=== PATIENT | female | born 1965 | race Caucasian/White ===

== ENCOUNTER 2017-08-20 11:32 | Inpatient (IN) | payer OTHER ==
[~2017-08-20] VITALS: Ht 160 cm; Wt 180.3 kg
--- NOTE | 2017-08-20 12:08 | PHYS DOC ---
Past Medical History Past Medical History: Diabetes-Type II, GERD, High Cholesterol, Hypertension Past Surgical History: Cholecystectomy, Hysterectomy, Other Additional Past Surgical Histo: BILATERAL KNEE SX Alcohol Use: Occasionally Drug Use: None Adult General Chief Complaint Chief Complaint: FLANK PAIN HPI HPI Patient is a 52 year old female who presents with abdominal pain. She states it started last night after she ate dinner she states it started in the right upper quadrant sharp in nature and radiated around her back and into her left upper quadrant as well. She denies any dysuria, fevers chills nausea or vomiting. She states she hasn't ate anything since last night and the pains been getting worse it was initially a 5 out of 10 now to 7 out of 10. She states she had a normal bowel movement this morning. She states she's had a history of cholecystectomy and partial hysterectomy. States she's had a history kidney stones and this does not feel like a kidney stone. Review of Systems Review of Systems Constitutional: Denies fever or chills [] Eyes: Denies change in visual acuity, redness, or eye pain [] HENT: Denies nasal congestion or sore throat [] Respiratory: Denies cough or shortness of breath [] Cardiovascular: No additional information not addressed in HPI [] GI: Positive for abdominal pain, Denies nausea, vomiting, bloody stools or diarrhea [] : Denies dysuria or hematuria [] Musculoskeletal: Denies back pain or joint pain [] Integument: Denies rash or skin lesions [] Neurologic: Denies headache, focal weakness or sensory changes [] Endocrine: Denies polyuria or polydipsia [] Current Medications Current Medications Current Medications Medications (Trade) Dose Ordered Sig/Pratik Start Time Stop Time Status Last Admin Dose Admin Fentanyl Citrate (Fentanyl 2ml Vial) 50 mcg PRN Q15MIN PRN 08/20/17 12:30 08/21/17 12:29 08/20/17 15:22 50 MCG Iohexol (Omnipaque 240 Mg/ml) 50 ml 1X ONCE 08/20/17 14:15 08/20/17 14:16 DC 08/20/17 14:15 50 ML Iohexol (Omnipaque 300 Mg/ml) 75 ml 1X ONCE 08/20/17 14:15 08/20/17 14:16 DC 08/20/17 14:15 75 ML Ondansetron HCl (Zofran) 4 mg 1X ONCE 08/20/17 12:30 08/20/17 12:31 DC 08/20/17 12:39 4 MG Sodium Chloride 1,000 ml @ 1,000 mls/hr 1X ONCE 08/20/17 12:30 08/20/17 13:29 DC 08/20/17 12:39 1,000 MLS/HR Allergies Allergies Allergies Coded Allergies Type Severity Reaction Last Updated Verified sulfamethoxazole Allergy Mild RASH 08/20/17 Yes trimethoprim Allergy Mild RASH 08/20/17 Yes Physical Exam Physical Exam Constitutional: Well developed, well nourished, no acute distress, non-toxic appearance. [] HENT: Normocephalic, atraumatic, bilateral external ears normal, oropharynx moist, no oral exudates, nose normal. [] Eyes: PERRLA, EOMI, conjunctiva normal, no discharge. [] Neck: Normal range of motion, no tenderness, supple, no stridor. [] Cardiovascular:Heart rate regular rhythm, no murmur [] Lungs & Thorax: Bilateral breath sounds clear to auscultation [] Abdomen: Bowel sounds hypoactive, soft, tender palpation in the right upper quadrant, other 3 quadrants nontender to palpation, no masses, no pulsatile masses. [] Skin: Warm, dry, no erythema, no rash. [] Back: No tenderness, no CVA tenderness. [] Extremities: No tenderness, no cyanosis, no clubbing, ROM intact, no edema. [] Neurologic: Alert and oriented X 3, normal motor function, normal sensory function, no focal deficits noted. [] Psychologic: Affect normal, judgement normal, mood normal. [] Current Patient Data Vital Signs Vital Signs Date Time Temp Pulse Resp B/P (MAP) Pulse Ox O2 Delivery O2 Flow Rate FiO2 08/20/17 16:25 78 19 136/63 (87) 96 Nasal Cannula 2.0 08/20/17 12:00 97.8 97.8 Lab Values Laboratory Tests Test 08/20/17 09:15 08/20/17 11:45 08/20/17 12:13 White Blood Count 7.5 x10^3/uL (4.0-11.0) Red Blood Count 4.04 x10^6/uL (3.50-5.40) Hemoglobin 12.2 g/dL (12.0-15.5) Hematocrit 36.1 % (36.0-47.0) Mean Corpuscular Volume 89 fL (79-100) Mean Corpuscular Hemoglobin 30 pg (25-35) Mean Corpuscular Hemoglobin Concent 34 g/dL (31-37) Red Cell Distribution Width 14.0 % (11.5-14.5) Platelet Count 215 x10^3/uL (140-400) Neutrophils (%) (Auto) 67 % (31-73) Lymphocytes (%) (Auto) 23 % (24-48) L Monocytes (%) (Auto) 7 % (0-9) Eosinophils (%) (Auto) 4 % (0-3) H Basophils (%) (Auto) 1 % (0-3) Neutrophils # (Auto) 5.0 x10^3uL (1.8-7.7) Lymphocytes # (Auto) 1.7 x10^3/uL (1.0-4.8) Monocytes # (Auto) 0.5 x10^3/uL (0.0-1.1) Eosinophils # (Auto) 0.3 x10^3/uL (0.0-0.7) Basophils # (Auto) 0.0 x10^3/uL (0.0-0.2) Prothrombin Time 12.7 SEC (11.7-14.0) Prothrombin Time INR 1.0 (0.8-1.1) PTT 25 SEC (24-38) Sodium Level 141 mmol/L (136-145) Potassium Level 4.0 mmol/L (3.5-5.1) Chloride Level 105 mmol/L (98-107) Carbon Dioxide Level 33 mmol/L (21-32) H Anion Gap 3 (6-14) L Blood Urea Nitrogen 13 mg/dL (7-20) Creatinine 0.8 mg/dL (0.6-1.0) Estimated GFR (Cockcroft-Gault) 75.3 Glucose Level 111 mg/dL (70-99) H Calcium Level 9.1 mg/dL (8.5-10.1) Total Bilirubin 0.3 mg/dL (0.2-1.0) Direct Bilirubin < 0.1 mg/dL (0.0-0.2) Aspartate Amino Transferase (AST) 25 U/L (15-37) Alanine Aminotransferase (ALT) 36 U/L (14-59) Alkaline Phosphatase 58 U/L (46-116) Creatine Kinase 99 U/L (26-192) Creatine Kinase MB (Mass) 0.6 ng/mL (0.0-3.6) Creatine Kinase MB Relative Index 0.6 % (0-4) Total Protein 7.1 g/dL (6.4-8.2) Albumin 3.5 g/dL (3.4-5.0) Lipase 201 U/L (73-393) Urine Collection Type Unknown Urine Color Yellow Urine Clarity Clear Urine pH 8.0 Urine Specific [place] 1.020 Urine Protein Negative mg/dL (NEG-TRACE) Urine Glucose (UA) Negative mg/dL (NEG) Urine Ketones (Stick) Negative mg/dL (NEG) Urine Blood Negative (NEG) Urine Nitrite Negative (NEG) Urine Bilirubin Negative (NEG) Urine Urobilinogen Dipstick 0.2 mg/dL (0.2 mg/dL) Urine Leukocyte Esterase Negative (NEG) Urine RBC Occ /HPF (0-2) Urine WBC 1-4 /HPF (0-4) Urine Squamous Epithelial Cells Many /LPF Urine Bacteria Moderate /HPF (0-FEW) Urine Opiates Screen Neg (NEG) Urine Methadone Screen Neg (NEG) Urine Barbiturates Neg (NEG) Urine Phencyclidine Screen Neg (NEG) Urine Amphetamine/Methamphetamine Neg (NEG) Urine Benzodiazepines Screen Neg (NEG) Urine Cocaine Screen Neg (NEG) Urine Cannabinoids Screen Neg (NEG) Urine Ethyl Alcohol Neg (NEG) Troponin I Quantitative < 0.017 ng/mL (0.000-0.055) Laboratory Tests 08/20/17 09:15 Laboratory Tests 08/20/17 09:15 EKG EKG EKG shows sinus rhythm with rate of [address] elevations, T-wave inversions noted in lead 3, right axis deviation with right bundle branch morphology noted, QTC 443 ms, as interpreted by me. Radiology/Procedures Radiology/Procedures [facility] [address] [place] [address] IMAGING REPORT Signed PATIENT: MASOUD CHANG ACCOUNT: [id number] : 1965 LOCATION: ER AGE: 52 SEX: F EXAM STATUS: REG ER ORD. PHYSICIAN: MELIA ACOSTA MD REASON: abd pain PROCEDURE: CT ABD PELV W/ORAL&IV CONTRAST EXAM: Abdomen and pelvis CT with intravenous contrast. HISTORY: Pain. TECHNIQUE: Computed tomographic images of the abdomen and pelvis were obtained following the administration of 75 cc Omnipaque 300 intravenous contrast. Multiplanar reformatting was performed. COMPARISON: None. FINDINGS: Evaluation of the lower thorax demonstrates posterior dependent atelectasis. There is no infiltrate or effusion. There is mild hepatomegaly and suspected minimal hepatic steatosis. The gallbladder is surgically absent. The pancreas, spleen, adrenal glands and kidneys are unremarkable. The appendix is normal in appearance. No abnormally thickened or dilated loop of bowel is seen. There are few distal colonic diverticula. The ovaries are unremarkable. The uterus is surgically absent. No pathologically enlarged lymph node is seen. There is a tiny fat-containing umbilical hernia. No suspicious osseous lesion is seen. IMPRESSION: 1. Few distal colonic diverticula. 2. Mild hepatomegaly and suspected minimal hepatic steatosis. 3. No acute abdominal or pelvic finding. PQRS Compliance Statement: One or more of the following individualized dose reduction techniques were utilized for this examination: 1. Automated exposure control 2. Adjustment of the mA and/or kV according to patient size 3. Use of iterative reconstruction technique DICTATED and SIGNED BY: BALJIT DORSEY MD DATE: 08/20/17 1532 CC: MELIA ACOSTA MD; UNKNOWN PCP NAME ~ Impressions: Right upper quadrant abdominal pain Course & Med Decision Making Course & Med Decision Making Pertinent Labs and Imaging studies reviewed. (See chart for details) CT scan and labs do not show any acute abnormality's. We'll obtain a right upper quadrant ultrasound and admit for pain control. Spoke with Dr. Nichols is agreeable to plan. Patient and her are agreeable and in stable condition at this time. Dragon Disclaimer Dragon Disclaimer This electronic medical record was generated, in whole or in part, using a voice recognition dictation system. MELIA ACOSTA MD Aug 20, 2017 12:08
[2017-08-20] MEDS ORDERED: fentaNYL PF VIAL 100 MCG/2 ML VIAL IV PRN ×2 (12:15→18:45)
[2017-08-20 12:23] LABS: BILIRUBIN,URINE NEGATIVE (NEG); GLUCOSE,URINE NEGATIVE (NEG); NITRITE,URINE NEGATIVE (NEG); PROTEIN,URINE NEGATIVE (NEG-TRACE); UROBILINOGEN,URINE 0.2 mg/dL (0.2 mg/dL)
[2017-08-20] MEDS ORDERED: IV NORMAL SALINE 1000ML BAG 1,000 ML IV ONE (12:30)
[2017-08-20] MEDS ORDERED: ONDANSETRON PF 4 MG/2 ML VIAL. IV ONE (12:30)
[2017-08-20 12:39] LABS: BASO % 1 % (0-3); EOS % 4 % (0-3); HEMATOCRIT 36.1 % (36.0-47.0); HEMOGLOBIN 12.2 g/dL (12.0-15.5); LYMPH # 1.7 x10^3/uL (1.0-4.8); LYMPH % 23 % (24-48); MEAN CORPUSCULAR HEMOGLOBIN 30 pg (25-35); MEAN CORPUSCULAR HGB CONC 34 g/dL (31-37); MEAN CORPUSCULAR VOLUME 89 fL (79-100); MONO % 7 % (0-9); NEUT % 67 % (31-73); PLATELET COUNT 215 x10^3/uL (140-400); RED BLOOD COUNT 4.04 x10^6/uL (3.50-5.40); WHITE BLOOD COUNT 7.5 x10^3/uL (4.0-11.0)
[2017-08-20] MEDS: fentaNYL PF VIAL 100 MCG/2 ML VIAL IV PRN ×3 (12:39→15:22)
[2017-08-20 12:40] LABS: BARBITURATES NEG (NEG); BENZODIAZEPINES NEG (NEG); CANNABINOIDS NEG (NEG); COCAINE NEG (NEG); METHADONE NEG (NEG); OPIATES NEG (NEG); PHENCYCLIDINE NEG (NEG)
--- NOTE | 2017-08-20 12:41 | EKG ---
[facility] [address] [place] [address] Test Date: 2017-08-20 Test Time: 12:24:03 Pat Name: MASOUD CHANG Department: Room: Gender: F Rn Clinical Quality: : 1965 Requested By: MELIA ACOSTA Order Number: [id number] Reading MD: Venkata Serna Measurements Intervals [place] Rate: 76 P: 45 MN: 142 QRS: 106 QRSD: 126 T: 7 QT: 390 QTc: 443 Interpretive Statements SINUS RHYTHM RIGHTWARD AXIS RIGHT BUNDLE BRANCH BLOCK QRS(T) CONTOUR ABNORMALITY CONSIDER ANTEROLATERAL MYOCARDIAL DAMAGE RI6.01 Unconfirmed report No previous ECG available for comparison Electronically Signed On 08-30-2017 12:42:39 CDT by Venkata Serna
[2017-08-20 12:50] LABS: ANION GAP 3 (6-14); BLOOD UREA NITROGEN 13 mg/dL (7-20); CALCIUM 9.1 mg/dL (8.5-10.1); CARBON DIOXIDE 33 mmol/L (21-32); CHLORIDE 105 mmol/L (98-107); CREATININE 0.8 mg/dL (0.6-1.0); GFR 75.3; GLUCOSE 111 mg/dL (70-99); SODIUM 141 mmol/L (136-145)
[2017-08-20 12:50] LABS: BACTERIA,URINE MODERATE /HPF (0-FEW); RBC,URINE OCC /HPF (0-2); SQUAMOUS EPITHELIAL CELL,UR MANY /LPF
[2017-08-20 12:53] LABS: PROTHROMBIN TIME PATIENT 12.7 SEC (11.7-14.0)
[2017-08-20 12:55] LABS: ALBUMIN 3.5 g/dL (3.4-5.0); ALK PHOS 58 U/L (46-116); ALT (SGPT) 36 U/L (14-59); AST (SGOT) 25 U/L (15-37); DIRECT BILIRUBIN < 0.1 mg/dL (0.0-0.2); TOTAL BILIRUBIN 0.3 mg/dL (0.2-1.0); TOTAL PROTEIN 7.1 g/dL (6.4-8.2)
[2017-08-20 13:03] LABS: CKMB MASS 0.6 ng/mL (0.0-3.6)
[2017-08-20] MEDS ORDERED: IOHEXOL 300 MG/ML 75 ML VIAL IV ONE (14:15)
[2017-08-20] MEDS ORDERED: IOHEXOL 240 MG/ML 50ML VIAL. PO ONE (14:15)
--- NOTE | 2017-08-20 15:38 | RAD ---
EXAM: Abdomen and pelvis CT with intravenous contrast. HISTORY: Pain. TECHNIQUE: Computed tomographic images of the abdomen and pelvis were obtained following the administration of 75 cc Omnipaque 300 intravenous contrast. Multiplanar reformatting was performed. COMPARISON: None. FINDINGS: Evaluation of the lower thorax demonstrates posterior dependent atelectasis. There is no infiltrate or effusion. There is mild hepatomegaly and suspected minimal hepatic steatosis. The gallbladder is surgically absent. The pancreas, spleen, adrenal glands and kidneys are unremarkable. The appendix is normal in appearance. No abnormally thickened or dilated loop of bowel is seen. There are few distal colonic diverticula. The ovaries are unremarkable. The uterus is surgically absent. No pathologically enlarged lymph node is seen. There is a tiny fat-containing umbilical hernia. No suspicious osseous lesion is seen. IMPRESSION: 1. Few distal colonic diverticula. 2. Mild hepatomegaly and suspected minimal hepatic steatosis. 3. No acute abdominal or pelvic finding. PQRS Compliance Statement: One or more of the following individualized dose reduction techniques were utilized for this examination: 1. Automated exposure control 2. Adjustment of the mA and/or kV according to patient size 3. Use of iterative reconstruction technique
--- NOTE | 2017-08-20 16:28 | RAD ---
EXAM: Chest, single view. HISTORY: Chest pain. COMPARISON: None. FINDINGS: A frontal view of the chest is obtained. There is no infiltrate, effusion or pneumothorax. The cardiac silhouette is prominent in size, likely due to portable technique. IMPRESSION: No acute pulmonary finding.
--- NOTE | 2017-08-20 16:34 | RAD ---
EXAM: Abdomen sonogram. HISTORY: Right upper quadrant pain. TECHNIQUE: Sonographic imaging of the abdomen was performed. COMPARISON: CT obtained on the same date. FINDINGS: There is hepatomegaly and hepatic steatosis. No focal hepatic lesion is seen. The gallbladder is surgically absent. The right kidney measures 13.1 cm [id number] and is unremarkable. The pancreas and inferior cava are obscured due to bowel. The aorta is not formally assessed. The common bile duct is upper normal in caliber for patient age, measuring 5.8 mm. This is likely due to reservoir effect status post cystectomy. IMPRESSION: 1. Hepatomegaly and hepatic steatosis. 2. Cholecystectomy. 3. Limited evaluation of the pancreas due to bowel gas.
[2017-08-20] MEDS ORDERED: ONDANSETRON PF 4 MG/2 ML VIAL. IV PRN ×2 (17:00→18:45)
[2017-08-20 18:00] VITALS: BP 141/71
[2017-08-20] MEDS ORDERED: DEXTROSE 50% 25 GM / 50ML DISP.SYRIN. IV PRN (18:45)
[2017-08-20] MEDS: MORPHINE SULFATE 4 MG/ML DISP.SYRIN. IV PRN ×2 (18:46→21:33)
[2017-08-20 19:00] VITALS: BP 126/69
--- NOTE | 2017-08-20 19:13 | PDOC1 ---
History and Physical Date of Admission Date of Admission DATE: 08/20/17 TIME: 19:01 Identification/Chief Complaint Chief Complaint RUQ pain, R scapula pain, radiates to back, underneath breast Problems: Source Source: Caregiver, Chart review, Patient History of Present Illness History of Present Illness 52 y.o super morbidly obese female, BMI 53, distant cholecystectomy some 25 yrs ago, comes in with above CC. LAbs ok, CT abd and US abd ok except for noted hepatomegaly and steatosis. She started having the pains yesterday, radiating to back, upper scapula, Rt shoulder, no recent trauma, worse when she ate, no emesis, no fevers, no change in BM, She denies PNA sxs, but does complain of fatigue, Hx DM unknown hgba1c, no hx fibromyalgia,. She claims thyroid has been checked. 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 All work up as of this point is neg, She describes the pain as tight, non burning, reproducible on palpation,. EKG ok , first set trop neg, HAs not had recent cardiac work up. Past Medical History Cardiovascular: HTN Musculoskeletal: Other (knee pain) Endocrine: Diabetes Past Surgical History Past Surgical History: Cholecystectomy, No pertinent history Family History Family History: High Cholestrol, Hypertension Social History Smoke: No ALCOHOL: none Drugs: None Current Medications Current Medications Current Medications Fentanyl Citrate (Fentanyl 2ml Vial) 25 mcg PRN Q15MIN PRN IV PAIN GREATER THAN 3/10; Start 08/20/17 at 12:15; Stop 08/21/17 at 12:14; Status Cancel Fentanyl Citrate (Fentanyl 2ml Vial) 50 mcg PRN Q15MIN PRN IV PAIN GREATER THAN 3/10 Last administered on 08/20/17 15:22; Start 08/20/17 at 12:30; Stop at 18:35; Status DC Ondansetron HCl (Zofran) 4 mg 1X ONCE IV Last administered on 08/20/17 12:39 ; Start 08/20/17 at 12:30; Stop 08/20/17 at 12:31; Status DC Sodium Chloride 1,000 ml @ 1,000 mls/hr 1X ONCE IV Last administered on 12:39; Start 08/20/17 at 12:30; Stop 08/20/17 at 13:29; Status DC Iohexol (Omnipaque 240 Mg/ml) 50 ml 1X ONCE PO Last administered on 08/20/17 14:15; Start 08/20/17 at 14:15; Stop 08/20/17 at 14:16; Status DC Iohexol (Omnipaque 300 Mg/ml) 75 ml 1X ONCE IV Last administered on 08/20/17 14:15; Start 08/20/17 at 14:15; Stop 08/20/17 at 14:16; Status DC Ondansetron HCl (Zofran) 4 mg PRN Q8HRS PRN IV NAUSEA/VOMITING; Start 08/20/17 at 17:00; Stop 08/20/17 at 18:35; Status DC Morphine Sulfate 2 mg PRN Q2HR PRN IV PAIN Last administered on 08/20/17 18:46 ; Start 08/20/17 at 17:00; Stop 08/21/17 at 16:59 Fentanyl Citrate (Fentanyl 2ml Vial) 50 mcg PRN Q2HR PRN IV PAIN GREATER THAN 3 /10; Start 08/20/17 at 18:45; Stop 08/21/17 at 18:44 Ondansetron HCl (Zofran) 4 mg PRN Q6HRS PRN IV NAUSEA/VOMITING; Start 08/20/17 at 18:45; Stop 08/21/17 at 18:44 Oxycodone/ Acetaminophen (Percocet 5/325) 1 tab PRN Q4HRS PRN PO PAIN; Start at 18:45 Insulin Aspart (NovoLOG) 0-9 UNITS TIDWMEALS SQ ; Start 08/21/17 at 08:00 Dextrose (Dextrose 50%-Water Syringe) 12.5 gm PRN Q15MIN PRN IV SEE COMMENTS; Start 08/20/17 at 18:45 Allergies Allergies: Coded Allergies: sulfamethoxazole (Verified Allergy, Mild, RASH, 08/20/17) trimethoprim (Verified Allergy, Mild, RASH, 08/20/17) ROS General: YES: Fatigue, Malaise Eyes: No Blurry vision, No Decreased vision, No Double vision, No Dry eyes, No Excessive tearing, No Eye Pain, No Itchy Eyes, No Loss of vision, No Photophobia , No Scotomata, No Uses contacts, No Uses glasses, No Other HEENT: No: Heacaches, Visual Changes, Hearing change, Nasal congestion, Nasal discharge, Oral lesions, Sinus pain, Sore Throat, Epistaxis, Sneezing, Snoring, Tinnitus, Vertigo, Vocal changes, Other ALLERGY AND IMMUNOLOGY: No: Hives, Insect Bite Sensitivity, Itchy/Watery Eyes, Nasal Congestion, Post Nasal Drip, Seasonal Allergies, Other Hematological and Lymphatic: No: Bleeding Problems, Blood Clots, Blood Transfusions, Brusing, Night Sweats, Pallor, Swollen Lymph Nodes, Other Breast: Other (RT underbreast pain) Respiratory: No: Cough, Hemoptysis, Orthopnea, Pleuritic Pain, Shortness of breath, SOB with excertion, Sputum Changes, Stridor, Tachypnea, Wheezing, Other Cardiovascular: No Chest Pain, No Palpitations, No Orthopnea, No Paroxysmal Noc. Dyspnea, No Edema, No Lt Headedness, No Other Gastrointestinal: Yes Abdominal Pain, Yes Other (RUQ area, she describes as tight, sharp) Neurological: Yes Other (chronic knee pain) Skin: No Dry Skin, No Eczema, No Hair Changes, No Lumps, No Mole Changes, No Mottling, No Nail Changes, No Pruritus, No Rash, No Skin Lesion Changes, No Other, No Acne Physical Exam General: Alert, Oriented X3, Cooperative, No acute distress HEENT: Atraumatic, PERRLA, EOMI Lungs: Clear to auscultation, Normal air movement Heart: S1S2, RRR, no thrills, no rubs, no gallops Breasts: Normal, Rt breast nml w/o mass, Lt breast nml w/o mass, Nipples normal Abdomen: Normal bowel sounds, Soft, No tenderness, No hepatosplenomegaly, No masses Extremities: No clubbing, No cyanosis, No edema, Normal pulses, No tenderness/ swelling Skin: No rashes, No breakdown, No significant lesion Neuro: Normal gait, Normal speech, Strength at 5/5 X4 ext, Normal tone, Sensation intact, Cranial nerves 3-12 NL, Reflexes 2+ Psych/Mental Status: Mental status NL, Mood NL Vitals Vitals Vital Signs Date Time Temp Pulse Resp B/P (MAP) Pulse Ox O2 Delivery O2 Flow Rate FiO2 08/20/17 18:46 18 08/20/17 18:00 97.5 74 141/71 (94) 95.0 97.5 08/20/17 16:25 96 Nasal Cannula Labs Labs Laboratory Tests Test 08/20/17 09:15 08/20/17 11:45 08/20/17 12:13 White Blood Count 7.5 x10^3/uL (4.0-11.0) Red Blood Count 4.04 x10^6/uL (3.50-5.40) Hemoglobin 12.2 g/dL (12.0-15.5) Hematocrit 36.1 % (36.0-47.0) Mean Corpuscular Volume 89 fL (79-100) Mean Corpuscular Hemoglobin 30 pg (25-35) Mean Corpuscular Hemoglobin Concent 34 g/dL (31-37) Red Cell Distribution Width 14.0 % (11.5-14.5) Platelet Count 215 x10^3/uL (140-400) Neutrophils (%) (Auto) 67 % (31-73) Lymphocytes (%) (Auto) 23 % (24-48) Monocytes (%) (Auto) 7 % (0-9) Eosinophils (%) (Auto) 4 % (0-3) Basophils (%) (Auto) 1 % (0-3) Neutrophils # (Auto) 5.0 x10^3uL (1.8-7.7) Lymphocytes # (Auto) 1.7 x10^3/uL (1.0-4.8) Monocytes # (Auto) 0.5 x10^3/uL (0.0-1.1) Eosinophils # (Auto) 0.3 x10^3/uL (0.0-0.7) Basophils # (Auto) 0.0 x10^3/uL (0.0-0.2) Prothrombin Time 12.7 SEC (11.7-14.0) Prothromb Time International Ratio 1.0 (0.8-1.1) Activated Partial Thromboplast Time 25 SEC (24-38) Sodium Level 141 mmol/L (136-145) Potassium Level 4.0 mmol/L (3.5-5.1) Chloride Level 105 mmol/L (98-107) Carbon Dioxide Level 33 mmol/L (21-32) Anion Gap 3 (6-14) Blood Urea Nitrogen 13 mg/dL (7-20) Creatinine 0.8 mg/dL (0.6-1.0) Estimated GFR (Cockcroft-Gault) 75.3 Glucose Level 111 mg/dL (70-99) Calcium Level 9.1 mg/dL (8.5-10.1) Total Bilirubin 0.3 mg/dL (0.2-1.0) Direct Bilirubin < 0.1 mg/dL (0.0-0.2) Aspartate Amino Transf (AST/SGOT) 25 U/L (15-37) Alanine Aminotransferase (ALT/SGPT) 36 U/L (14-59) Alkaline Phosphatase 58 U/L (46-116) Creatine Kinase 99 U/L (26-192) Creatine Kinase MB (Mass) 0.6 ng/mL (0.0-3.6) Creatine Kinase MB Relative Index 0.6 % (0-4) Total Protein 7.1 g/dL (6.4-8.2) Albumin 3.5 g/dL (3.4-5.0) Lipase 201 U/L (73-393) Urine Collection Type Unknown Urine Color Yellow Urine Clarity Clear Urine pH 8.0 Urine Specific [place] 1.020 Urine Protein Negative mg/dL (NEG-TRACE) Urine Glucose (UA) Negative mg/dL (NEG) Urine Ketones (Stick) Negative mg/dL (NEG) Urine Blood Negative (NEG) Urine Nitrite Negative (NEG) Urine Bilirubin Negative (NEG) Urine Urobilinogen Dipstick 0.2 mg/dL (0.2 mg/dL) Urine Leukocyte Esterase Negative (NEG) Urine RBC Occ /HPF (0-2) Urine WBC 1-4 /HPF (0-4) Urine Squamous Epithelial Cells Many /LPF Urine Bacteria Moderate /HPF (0-FEW) Urine Opiates Screen Neg (NEG) Urine Methadone Screen Neg (NEG) Urine Barbiturates Neg (NEG) Urine Phencyclidine Screen Neg (NEG) Urine Amphetamine/Methamphetamine Neg (NEG) Urine Benzodiazepines Screen Neg (NEG) Urine Cocaine Screen Neg (NEG) Urine Cannabinoids Screen Neg (NEG) Urine Ethyl Alcohol Neg (NEG) Troponin I Quantitative < 0.017 ng/mL (0.000-0.055) Laboratory Tests Test 08/20/17 09:15 08/20/17 11:45 08/20/17 12:13 White Blood Count 7.5 x10^3/uL (4.0-11.0) Red Blood Count 4.04 x10^6/uL (3.50-5.40) Hemoglobin 12.2 g/dL (12.0-15.5) Hematocrit 36.1 % (36.0-47.0) Mean Corpuscular Volume 89 fL (79-100) Mean Corpuscular Hemoglobin 30 pg (25-35) Mean Corpuscular Hemoglobin Concent 34 g/dL (31-37) Red Cell Distribution Width 14.0 % (11.5-14.5) Platelet Count 215 x10^3/uL (140-400) Neutrophils (%) (Auto) 67 % (31-73) Lymphocytes (%) (Auto) 23 % (24-48) Monocytes (%) (Auto) 7 % (0-9) Eosinophils (%) (Auto) 4 % (0-3) Basophils (%) (Auto) 1 % (0-3) Neutrophils # (Auto) 5.0 x10^3uL (1.8-7.7) Lymphocytes # (Auto) 1.7 x10^3/uL (1.0-4.8) Monocytes # (Auto) 0.5 x10^3/uL (0.0-1.1) Eosinophils # (Auto) 0.3 x10^3/uL (0.0-0.7) Basophils # (Auto) 0.0 x10^3/uL (0.0-0.2) Prothrombin Time 12.7 SEC (11.7-14.0) Prothromb Time International Ratio 1.0 (0.8-1.1) Activated Partial Thromboplast Time 25 SEC (24-38) Sodium Level 141 mmol/L (136-145) Potassium Level 4.0 mmol/L (3.5-5.1) Chloride Level 105 mmol/L (98-107) Carbon Dioxide Level 33 mmol/L (21-32) Anion Gap 3 (6-14) Blood Urea Nitrogen 13 mg/dL (7-20) Creatinine 0.8 mg/dL (0.6-1.0) Estimated GFR (Cockcroft-Gault) 75.3 Glucose Level 111 mg/dL (70-99) Calcium Level 9.1 mg/dL (8.5-10.1) Total Bilirubin 0.3 mg/dL (0.2-1.0) Direct Bilirubin < 0.1 mg/dL (0.0-0.2) Aspartate Amino Transf (AST/SGOT) 25 U/L (15-37) Alanine Aminotransferase (ALT/SGPT) 36 U/L (14-59) Alkaline Phosphatase 58 U/L (46-116) Creatine Kinase 99 U/L (26-192) Creatine Kinase MB (Mass) 0.6 ng/mL (0.0-3.6) Creatine Kinase MB Relative Index 0.6 % (0-4) Total Protein 7.1 g/dL (6.4-8.2) Albumin 3.5 g/dL (3.4-5.0) Lipase 201 U/L (73-393) Urine Collection Type Unknown Urine Color Yellow Urine Clarity Clear Urine pH 8.0 Urine Specific [place] 1.020 Urine Protein Negative mg/dL (NEG-TRACE) Urine Glucose (UA) Negative mg/dL (NEG) Urine Ketones (Stick) Negative mg/dL (NEG) Urine Blood Negative (NEG) Urine Nitrite Negative (NEG) Urine Bilirubin Negative (NEG) Urine Urobilinogen Dipstick 0.2 mg/dL (0.2 mg/dL) Urine Leukocyte Esterase Negative (NEG) Urine RBC Occ /HPF (0-2) Urine WBC 1-4 /HPF (0-4) Urine Squamous Epithelial Cells Many /LPF Urine Bacteria Moderate /HPF (0-FEW) Urine Opiates Screen Neg (NEG) Urine Methadone Screen Neg (NEG) Urine Barbiturates Neg (NEG) Urine Phencyclidine Screen Neg (NEG) Urine Amphetamine/Methamphetamine Neg (NEG) Urine Benzodiazepines Screen Neg (NEG) Urine Cocaine Screen Neg (NEG) Urine Cannabinoids Screen Neg (NEG) Urine Ethyl Alcohol Neg (NEG) Troponin I Quantitative < 0.017 ng/mL (0.000-0.055) VTE Prophylaxis Ordered VTE Prophylaxis Devices: Yes VTE Pharmacological Prophylaxi: Yes Assessment/Plan Assessment/Plan 1. RUQ pain, Right sided chest pain, scapular pain, reproducible palpation, DM 2 , Super MOrbidly obese, FAmily hx CHF, CAD - so far abd CT and US neg except for fatty liver and steatosis, Morbid obesity, so sxs could be from reflux. Takes Aciphex. Will try PPI this time Would also like for cards to see, MPI hopefully as CP may be atypical but she has risk factors mainly her weight, fam hx and DM,. Never had MPI done before - will her weight allow?? Maybe an echo if MPI cant be done, Also discussed trial of lidoderm - see if this will help Awaiting home meds Check hgba1c and TSH CHeck flu - she asks about this- buts he lacks any other URI sxs, does note fatigue, 2. Steatosis/fatty liver 3. Chronic leg edema- elevate MDM complex - very vague sxs, tests unrevealing so far MIO MARTI MD Aug 20, 2017 19:13
[2017-08-20] MEDS: oxyCODONE/APAP 5/325 1 TAB TABLET PO PRN (20:30)
[2017-08-20] MEDS: LIDOCAINE (700MG/PATCH) PATCH. TD SCH (20:31)
[2017-08-20] MEDS ORDERED: RABE20TA18 PO (20:52)
[2017-08-20] MEDS ORDERED: UBID50TA PO (20:52)
[2017-08-20] MEDS ORDERED: ALPR0.25 PO (20:52)
[2017-08-20] MEDS ORDERED: MAGN400C PO (20:52)
[2017-08-20] MEDS ORDERED: LOSA1TAB22 PO (20:52)
[2017-08-20] MEDS ORDERED: CHOL100013 PO (20:52)
[2017-08-20] MEDS ORDERED: ATOR10TA60 PO (20:52)
[2017-08-20] MEDS ORDERED: METF-620 PO (20:52)
[2017-08-20] MEDS ORDERED: METR45CR2 TP (20:52)
[2017-08-20] MEDS ORDERED: OMEG1CAP27 PO (20:52)
[2017-08-20] MEDS ORDERED: CETI10TA22 PO (20:52)
[2017-08-20] MEDS ORDERED: FENO134C PO (20:52)
[2017-08-20 23:00] VITALS: BP 124/60
[2017-08-21] MEDS: ALPRAZolam 0.25 MG TABLET PO PRN ×2 (02:49→22:26)
[2017-08-21 03:00] VITALS: BP 115/57
[2017-08-21] MEDS ORDERED: ALPRAZolam 0.25 MG TABLET PO PRN (05:30)
[2017-08-21 06:10] LABS: BASO % 0 % (0-3); EOS % 4 % (0-3); HEMATOCRIT 35.3 % (36.0-47.0); HEMOGLOBIN 11.8 g/dL (12.0-15.5); LYMPH # 1.7 x10^3/uL (1.0-4.8); LYMPH % 25 % (24-48); MEAN CORPUSCULAR HEMOGLOBIN 30 pg (25-35); MEAN CORPUSCULAR HGB CONC 33 g/dL (31-37); MEAN CORPUSCULAR VOLUME 91 fL (79-100); MONO % 7 % (0-9); NEUT % 64 % (31-73); PLATELET COUNT 209 x10^3/uL (140-400); RED CELL DISTRIBUTION WIDTH 14.3 % (11.5-14.5); WHITE BLOOD COUNT 6.8 x10^3/uL (4.0-11.0)
[2017-08-21] MEDS: PANTOPRAZOLE 40 MG TABLET.DR. PO SCH (06:23)
[2017-08-21 06:35] LABS: ALBUMIN 3.2 g/dL (3.4-5.0); ALBUMIN/GLOBULIN RATIO 0.9 (1.0-1.7); CALCIUM 8.7 mg/dL (8.5-10.1); CREATININE 0.8 mg/dL (0.6-1.0); GFR 75.3; POTASSIUM 3.9 mmol/L (3.5-5.1); TOTAL BILIRUBIN 0.2 mg/dL (0.2-1.0); TOTAL PROTEIN 6.8 g/dL (6.4-8.2)
[2017-08-21 07:00] VITALS: BP 151/81
[2017-08-21] MEDS: INSULIN ASPART 300 UNITS/3 ML INSULN.PEN SQ SCH ×3 (08:00→17:00)
[2017-08-21] MEDS: oxyCODONE/APAP 5/325 1 TAB TABLET PO PRN ×2 (08:25→20:35)
[2017-08-21] MEDS: LOSARTAN POTASSIUM 50 MG TABLET. PO SCH (08:26)
[2017-08-21] MEDS: MAGNESIUM OXIDE 400 MG TABLET PO SCH (08:26)
[2017-08-21] MEDS: hydroCHLOROthiazide 25 MG TABLET PO SCH (08:26)
[2017-08-21] MEDS: CETIRIZINE HCL 10 MG TABLET. PO SCH (08:27)
[2017-08-21] MEDS: metroNIDAZOLE 0.75% TOPICAL 1 APP TUBE TP SCH (08:27)
[2017-08-21] MEDS: LIDOCAINE (700MG/PATCH) PATCH. TD SCH (08:27)
[2017-08-21] MEDS: FENOFIBRATE,MICRONIZED 134 MG CAPSULE PO SCH (08:27)
[2017-08-21] MEDS: CHOLECALCIFEROL (VITAMIN D3) 1,000 UNIT TABLET PO SCH (08:27)
--- NOTE | 2017-08-21 08:50 | PDOC2 ---
GI CONSULT Reason For Consult: RUQ pain s/p sayda HPI: HPI: 52 y/o female who reports sudden onset of pain in the RUQ, below right breast and wrapping to right flank and shoulder blade on 08/19/17 at 7:00 p.m. while eating Japanese food. Pain is similar to gallbladder attack 25 years ago (s/p cholecystectomy then for "virus" and gallstones). No n/v, diarrhea, hematochezia, melena. H/o GERD on Aciphex, well-controlled, although did have nocturnal reflux after admission, first time in years. Last EGD 12 years ago, no significant findings recalled. Had some constipation a couple days ago, now resolved. Last colonoscopy at [facility] in 12/2016, reportedly normal. Frequent ibuprofen use for knee pain. No alleviating factors other than pain medications. Pain was constant, relieved somewhat overnight, now recurring. Labs generally unrevealing except slight bump in troponin overnight. Cardiology consult pending. Imaging as below, also unrevealing. PMH: PMH: HTN, HLD, DM, GERD, BCC, anxiety/insomnia, OA (knees), cholecystectomy, partial hysterectomy, right knee arthroscopy, left ACL replacement FH: Family History: No pertinent hx (denies GI cancers), CAD Social History: Smoke: Quit ALCOHOL: social Drugs: None ROS: GEN: Denies fevers, chills, sweats HEENT: Denies blurred vision, sore throat CV: Denies chest pain +BLE swelling RESP: Denies shortness of air, cough GI: Per HPI : Denies hematuria, dysuria ENDO: Denies weight changes NEURO: Denies confusion, dizziness MSK: +back pain +knee pain SKIN: Denies jaundice, pruritus Vitals: Vitals: Vital Signs Date Time Temp Pulse Resp B/P (MAP) Pulse Ox O2 Delivery O2 Flow Rate FiO2 08/21/17 08:26 86 151/81 08/21/17 08:25 99 Room Air 95.0 08/21/17 07:00 98.5 20 98.5 Labs: Labs: Laboratory Tests Test 08/20/17 09:15 08/20/17 11:45 08/20/17 12:13 08/20/17 21:07 White Blood Count 7.5 x10^3/uL (4.0-11.0) Red Blood Count 4.04 x10^6/uL (3.50-5.40) Hemoglobin 12.2 g/dL (12.0-15.5) Hematocrit 36.1 % (36.0-47.0) Mean Corpuscular Volume 89 fL (79-100) Mean Corpuscular Hemoglobin 30 pg (25-35) Mean Corpuscular Hemoglobin Concent 34 g/dL (31-37) Red Cell Distribution Width 14.0 % (11.5-14.5) Platelet Count 215 x10^3/uL (140-400) Neutrophils (%) (Auto) 67 % (31-73) Lymphocytes (%) (Auto) 23 % (24-48) Monocytes (%) (Auto) 7 % (0-9) Eosinophils (%) (Auto) 4 % (0-3) Basophils (%) (Auto) 1 % (0-3) Neutrophils # (Auto) 5.0 x10^3uL (1.8-7.7) Lymphocytes # (Auto) 1.7 x10^3/uL (1.0-4.8) Monocytes # (Auto) 0.5 x10^3/uL (0.0-1.1) Eosinophils # (Auto) 0.3 x10^3/uL (0.0-0.7) Basophils # (Auto) 0.0 x10^3/uL (0.0-0.2) Prothrombin Time 12.7 SEC (11.7-14.0) Prothromb Time International Ratio 1.0 (0.8-1.1) Activated Partial Thromboplast Time 25 SEC (24-38) Sodium Level 141 mmol/L (136-145) Potassium Level 4.0 mmol/L (3.5-5.1) Chloride Level 105 mmol/L (98-107) Carbon Dioxide Level 33 mmol/L (21-32) Anion Gap 3 (6-14) Blood Urea Nitrogen 13 mg/dL (7-20) Creatinine 0.8 mg/dL (0.6-1.0) Estimated GFR (Cockcroft-Gault) 75.3 Glucose Level 111 mg/dL (70-99) Calcium Level 9.1 mg/dL (8.5-10.1) Total Bilirubin 0.3 mg/dL (0.2-1.0) Direct Bilirubin < 0.1 mg/dL (0.0-0.2) Aspartate Amino Transf (AST/SGOT) 25 U/L (15-37) Alanine Aminotransferase (ALT/SGPT) 36 U/L (14-59) Alkaline Phosphatase 58 U/L (46-116) Creatine Kinase 99 U/L (26-192) Creatine Kinase MB (Mass) 0.6 ng/mL (0.0-3.6) Creatine Kinase MB Relative Index 0.6 % (0-4) Total Protein 7.1 g/dL (6.4-8.2) Albumin 3.5 g/dL (3.4-5.0) Lipase 201 U/L (73-393) Urine Collection Type Unknown Urine Color Yellow Urine Clarity Clear Urine pH 8.0 Urine Specific [place] 1.020 Urine Protein Negative mg/dL (NEG-TRACE) Urine Glucose (UA) Negative mg/dL (NEG) Urine Ketones (Stick) Negative mg/dL (NEG) Urine Blood Negative (NEG) Urine Nitrite Negative (NEG) Urine Bilirubin Negative (NEG) Urine Urobilinogen Dipstick 0.2 mg/dL (0.2 mg/dL) Urine Leukocyte Esterase Negative (NEG) Urine RBC Occ /HPF (0-2) Urine WBC 1-4 /HPF (0-4) Urine Squamous Epithelial Cells Many /LPF Urine Bacteria Moderate /HPF (0-FEW) Urine Opiates Screen Neg (NEG) Urine Methadone Screen Neg (NEG) Urine Barbiturates Neg (NEG) Urine Phencyclidine Screen Neg (NEG) Urine Amphetamine/Methamphetamine Neg (NEG) Urine Benzodiazepines Screen Neg (NEG) Urine Cocaine Screen Neg (NEG) Urine Cannabinoids Screen Neg (NEG) Urine Ethyl Alcohol Neg (NEG) Troponin I Quantitative < 0.017 ng/mL (0.000-0.055) Glucose (Fingerstick) 112 mg/dL (70-99) Test 08/20/17 22:50 08/21/17 04:35 08/21/17 04:55 08/21/17 07:06 Troponin I Quantitative < 0.017 ng/mL (0.000-0.055) 0.083 ng/mL (0.000-0.055) Erythrocyte Sedimentation Rate 18 (0-25) White Blood Count 6.8 x10^3/uL (4.0-11.0) Red Blood Count 3.90 x10^6/uL (3.50-5.40) Hemoglobin 11.8 g/dL (12.0-15.5) Hematocrit 35.3 % (36.0-47.0) Mean Corpuscular Volume 91 fL (79-100) Mean Corpuscular Hemoglobin 30 pg (25-35) Mean Corpuscular Hemoglobin Concent 33 g/dL (31-37) Red Cell Distribution Width 14.3 % (11.5-14.5) Platelet Count 209 x10^3/uL (140-400) Neutrophils (%) (Auto) 64 % (31-73) Lymphocytes (%) (Auto) 25 % (24-48) Monocytes (%) (Auto) 7 % (0-9) Eosinophils (%) (Auto) 4 % (0-3) Basophils (%) (Auto) 0 % (0-3) Neutrophils # (Auto) 4.3 x10^3uL (1.8-7.7) Lymphocytes # (Auto) 1.7 x10^3/uL (1.0-4.8) Monocytes # (Auto) 0.5 x10^3/uL (0.0-1.1) Eosinophils # (Auto) 0.3 x10^3/uL (0.0-0.7) Basophils # (Auto) 0.0 x10^3/uL (0.0-0.2) Sodium Level 143 mmol/L (136-145) Potassium Level 3.9 mmol/L (3.5-5.1) Chloride Level 104 mmol/L (98-107) Carbon Dioxide Level 34 mmol/L (21-32) Anion Gap 5 (6-14) Blood Urea Nitrogen 14 mg/dL (7-20) Creatinine 0.8 mg/dL (0.6-1.0) Estimated GFR (Cockcroft-Gault) 75.3 BUN/Creatinine Ratio 18 (6-20) Glucose Level 128 mg/dL (70-99) Calcium Level 8.7 mg/dL (8.5-10.1) Total Bilirubin 0.2 mg/dL (0.2-1.0) Aspartate Amino Transf (AST/SGOT) 19 U/L (15-37) Alanine Aminotransferase (ALT/SGPT) 31 U/L (14-59) Alkaline Phosphatase 50 U/L (46-116) Total Protein 6.8 g/dL (6.4-8.2) Albumin 3.2 g/dL (3.4-5.0) Albumin/Globulin Ratio 0.9 (1.0-1.7) Thyroid Stimulating Hormone (TSH) 1.728 uIU/mL (0.358-3.74) Glucose (Fingerstick) 131 mg/dL (70-99) Allergies: Coded Allergies: sulfamethoxazole (Verified Allergy, Intermediate, RASH, 08/20/17) tree nut (Verified Allergy, Intermediate, Rash, 08/20/17) trimethoprim (Verified Allergy, Intermediate, RASH, 08/20/17) Medications: Current Medications Medications (Trade) Dose Ordered Sig/Pratik Route PRN Reason Start Time Stop Time Status Last Admin Dose Admin Fentanyl Citrate (Fentanyl 2ml Vial) 50 mcg PRN Q15MIN PRN IV PAIN GREATER THAN 3/10 08/20/17 12:30 08/20/17 18:35 DC 08/20/17 15:22 Ondansetron HCl (Zofran) 4 mg 1X ONCE IV 08/20/17 12:30 08/20/17 12:31 DC 08/20/17 12:39 Sodium Chloride 1,000 ml @ 1,000 mls/hr 1X ONCE IV 08/20/17 12:30 08/20/17 13:29 DC 08/20/17 12:39 Iohexol (Omnipaque 240 Mg/ml) 50 ml 1X ONCE PO 08/20/17 14:15 08/20/17 14:16 DC 08/20/17 14:15 Iohexol (Omnipaque 300 Mg/ml) 75 ml 1X ONCE IV 08/20/17 14:15 08/20/17 14:16 DC 08/20/17 14:15 Morphine Sulfate 2 mg PRN Q2HR PRN IV PAIN 08/20/17 17:00 08/21/17 16:59 08/20/17 21:33 Oxycodone/ Acetaminophen (Percocet 5/325) 1 tab PRN Q4HRS PRN PO PAIN 08/20/17 18:45 08/21/17 08:25 Lidocaine (Lidoderm) 1 patch DAILY TD 08/20/17 19:15 08/21/17 08:27 Pantoprazole Sodium (Protonix) 40 mg DAILYAC PO 08/21/17 07:30 08/21/17 06:23 Alprazolam (Xanax) 0.25 mg PRN QHS PRN PO INSOMNIA 08/20/17 22:45 08/21/17 02:49 Magnesium Oxide (Magnesium Oxide) 400 mg DAILY PO 08/21/17 09:00 08/21/17 08:26 Metronidazole (Nydamax) 1 adam DAILY TP 08/21/17 09:00 08/21/17 08:27 Losartan Potassium (Cozaar) 100 mg DAILY PO 08/21/17 09:00 08/21/17 08:26 Hydrochlorothiazide (Hydrodiuril) 25 mg DAILY PO 08/21/17 09:00 08/21/17 08:26 Imaging: Imaging: CXR IMPRESSION: No acute pulmonary finding. RUQ US IMPRESSION: 1. Hepatomegaly and hepatic steatosis. 2. Cholecystectomy. 3. Limited evaluation of the pancreas due to bowel gas. CT A/P w/ oral and IV contrast IMPRESSION: 1. Few distal colonic diverticula. 2. Mild hepatomegaly and suspected minimal hepatic steatosis. 3. No acute abdominal or pelvic finding. PE: GEN: NAD, morbidly obese HEENT: Atraumatic, PERRL LUNGS: CTAB HEART: RRR ABD: NABS, S/ND, RUQ tenderness under right breast to right scapula EXTREMITY: BLE edema SKIN: No rashes, no jaundice NEURO/PSYCH: A & O 3 A/P: A/P: RUQ/right breast/right shoulder pain -acute onset 08/19/17 while eating, has been fairly constant -s/p cholecystectomy, imaging as above GERD -controlled on PPI, did have reflux overnight -last EGD 12 years ago CRC screen -reports normal colonoscopy in 12/2016 Elevated troponin -per cardiology Morbid obesity, hepatic steatosis -- Await cardiology workup. If unrevealing, consider MRCP (could be done as outpt) . Continue PPI. SUSU CORDOVA Aug 21, 2017 08:50
[2017-08-21] MEDS ORDERED: RABEPRAZOLE SODIUM PO SCH (09:00)
[2017-08-21] MEDS ORDERED: NON FORMULARY ITEM (Losartan/Hydrochlorothiazide (Losartan-Hctz 100-25 Mg Tab) 1 TAB) PO SCH (09:00)
[2017-08-21] MEDS ORDERED: CALCIUM CARBONATE 500 MG TAB.CHEW PO PRN (09:15)
[2017-08-21 11:00] VITALS: BP 125/61
--- NOTE | 2017-08-21 11:45 | PDOC2 ---
CARDIAC CONSULT DATE OF CONSULT Date of Consult DATE: 08/21/17 TIME: 11:23 REASON FOR CONSULT Reason for Consult: right sided CP, RUQ pain, DM, obese REFERRING PHYSICIAN Referring Physician: Claire SOURCE Source: Chart review, Patient HISTORY OF PRESENT ILLNESS HISTORY OF PRESENT ILLNESS This is a pleasant 52 yo female admitted for complains of chest pain. Reports of right shoulder blade sharp pain and spastic pain duplicated as well with deep breathing radiating to right chest and RUQ abd. Reports no n/v, palpitations, diaphoresis. Denies any prior CAD nor VTE. 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 Her discomfort and SOA started Saturday at dinner and has continued intermittently since then. Her activity tolerance could not be gauged accurately since her mobility is limited. Denies any falls, injury, dizziness. No personal or family hx of clotting disorders. PAST MEDICAL HISTORY Cardiovascular: HTN, Hyperlipidemia Pulmonary: No pertinent hx CENTRAL NERVOUS SYSTEM: Other (No pertinent history) GI: GERD Heme/Onc: No pertinent hx Hepatobiliary: No pertinent hx Psych: Anxiety Musculoskeletal: Osteoarthritis, Other (morbid obesity) Rheumatologic: No pertinent hx Infectious disease: No pertinent hx ENT: No pertinent hx Renal/: UTI, Other (nephrolithiasis) Endocrine: Diabetes (2) Dermatology: Eczema, Basal cell PAST SURGICAL HISTORY Past Surgical History: Arthroscopy (bilateral knee), Cholecystectomy, Hysterectomy, Other (skin CA excision) FAMILY HISTORY Family History: Coronary Artery Disease (father in his 50s), Stroke (father) SOCIAL HISTORY Smoke: Quit (2 pk yr) ALCOHOL: none Drugs: None Lives: with Family CURRENT MEDICATIONS CURRENT MEDICATIONS Current Medications Medications (Trade) Dose Ordered Sig/Pratik Route PRN Reason Start Time Stop Time Status Last Admin Dose Admin Fentanyl Citrate (Fentanyl 2ml Vial) 50 mcg PRN Q15MIN PRN IV PAIN GREATER THAN 3/10 08/20/17 12:30 08/20/17 18:35 DC 08/20/17 15:22 Ondansetron HCl (Zofran) 4 mg 1X ONCE IV 08/20/17 12:30 08/20/17 12:31 DC 08/20/17 12:39 Sodium Chloride 1,000 ml @ 1,000 mls/hr 1X ONCE IV 08/20/17 12:30 08/20/17 13:29 DC 08/20/17 12:39 Iohexol (Omnipaque 240 Mg/ml) 50 ml 1X ONCE PO 08/20/17 14:15 08/20/17 14:16 DC 08/20/17 14:15 Iohexol (Omnipaque 300 Mg/ml) 75 ml 1X ONCE IV 08/20/17 14:15 08/20/17 14:16 DC 08/20/17 14:15 Morphine Sulfate 2 mg PRN Q2HR PRN IV PAIN 08/20/17 17:00 08/21/17 16:59 08/20/17 21:33 Oxycodone/ Acetaminophen (Percocet 5/325) 1 tab PRN Q4HRS PRN PO PAIN 08/20/17 18:45 08/21/17 08:25 Lidocaine (Lidoderm) 1 patch DAILY TD 08/20/17 19:15 08/21/17 08:27 Pantoprazole Sodium (Protonix) 40 mg DAILYAC PO 08/21/17 07:30 08/21/17 06:23 Alprazolam (Xanax) 0.25 mg PRN QHS PRN PO INSOMNIA 08/20/17 22:45 08/21/17 02:49 Magnesium Oxide (Magnesium Oxide) 400 mg DAILY PO 08/21/17 09:00 08/21/17 08:26 Metronidazole (Nydamax) 1 adam DAILY TP 08/21/17 09:00 08/21/17 08:27 Losartan Potassium (Cozaar) 100 mg DAILY PO 08/21/17 09:00 08/21/17 08:26 Hydrochlorothiazide (Hydrodiuril) 25 mg DAILY PO 08/21/17 09:00 08/21/17 08:26 ALLERGIES ALLERGIES: Coded Allergies: sulfamethoxazole (Verified Allergy, Intermediate, RASH, 08/20/17) tree nut (Verified Allergy, Intermediate, Rash, 08/20/17) trimethoprim (Verified Allergy, Intermediate, RASH, 08/20/17) ROS Review of System 14 point ROS evaluated with pertinent positives noted per HPI PHYSICAL EXAM General: Alert, Oriented X3, Cooperative, No acute distress HEENT: Atraumatic, Mucous membr. moist/pink Lungs: Other (diminished bases) Heart: Regular rate (SR), Normal S1, Normal S2, Other (distnat heart sounds) Abdomen: Soft, Other (obese) Extremities: No cyanosis, Other (1+ bilateral LE pitting edema) Skin: No breakdown, No significant lesion Neuro: Normal speech, Sensation intact Psych/Mental Status: Mental status NL, Mood NL MUSCULOSKELETAL: Osteoarthritic changes both hands VITALS VITALS Vital Signs Date Time Temp Pulse Resp B/P (MAP) Pulse Ox O2 Delivery O2 Flow Rate FiO2 08/21/17 10:10 99 Room Air 95.0 08/21/17 08:26 86 151/81 08/21/17 07:00 98.5 20 98.5 LABS Lab: Laboratory Tests Test 08/20/17 11:45 08/20/17 12:13 08/20/17 21:07 08/20/17 22:50 Urine Collection Type Unknown Urine Color Yellow Urine Clarity Clear Urine pH 8.0 Urine Specific [place] 1.020 Urine Protein Negative mg/dL (NEG-TRACE) Urine Glucose (UA) Negative mg/dL (NEG) Urine Ketones (Stick) Negative mg/dL (NEG) Urine Blood Negative (NEG) Urine Nitrite Negative (NEG) Urine Bilirubin Negative (NEG) Urine Urobilinogen Dipstick 0.2 mg/dL (0.2 mg/dL) Urine Leukocyte Esterase Negative (NEG) Urine RBC Occ /HPF (0-2) Urine WBC 1-4 /HPF (0-4) Urine Squamous Epithelial Cells Many /LPF Urine Bacteria Moderate /HPF (0-FEW) Urine Opiates Screen Neg (NEG) Urine Methadone Screen Neg (NEG) Urine Barbiturates Neg (NEG) Urine Phencyclidine Screen Neg (NEG) Urine Amphetamine/Methamphetamine Neg (NEG) Urine Benzodiazepines Screen Neg (NEG) Urine Cocaine Screen Neg (NEG) Urine Cannabinoids Screen Neg (NEG) Urine Ethyl Alcohol Neg (NEG) Troponin I Quantitative < 0.017 ng/mL (0.000-0.055) < 0.017 ng/mL (0.000-0.055) Glucose (Fingerstick) 112 mg/dL (70-99) Test 08/21/17 04:35 08/21/17 04:55 08/21/17 07:06 Erythrocyte Sedimentation Rate 18 (0-25) White Blood Count 6.8 x10^3/uL (4.0-11.0) Red Blood Count 3.90 x10^6/uL (3.50-5.40) Hemoglobin 11.8 g/dL (12.0-15.5) Hematocrit 35.3 % (36.0-47.0) Mean Corpuscular Volume 91 fL (79-100) Mean Corpuscular Hemoglobin 30 pg (25-35) Mean Corpuscular Hemoglobin Concent 33 g/dL (31-37) Red Cell Distribution Width 14.3 % (11.5-14.5) Platelet Count 209 x10^3/uL (140-400) Neutrophils (%) (Auto) 64 % (31-73) Lymphocytes (%) (Auto) 25 % (24-48) Monocytes (%) (Auto) 7 % (0-9) Eosinophils (%) (Auto) 4 % (0-3) Basophils (%) (Auto) 0 % (0-3) Neutrophils # (Auto) 4.3 x10^3uL (1.8-7.7) Lymphocytes # (Auto) 1.7 x10^3/uL (1.0-4.8) Monocytes # (Auto) 0.5 x10^3/uL (0.0-1.1) Eosinophils # (Auto) 0.3 x10^3/uL (0.0-0.7) Basophils # (Auto) 0.0 x10^3/uL (0.0-0.2) Sodium Level 143 mmol/L (136-145) Potassium Level 3.9 mmol/L (3.5-5.1) Chloride Level 104 mmol/L (98-107) Carbon Dioxide Level 34 mmol/L (21-32) Anion Gap 5 (6-14) Blood Urea Nitrogen 14 mg/dL (7-20) Creatinine 0.8 mg/dL (0.6-1.0) Estimated GFR (Cockcroft-Gault) 75.3 BUN/Creatinine Ratio 18 (6-20) Glucose Level 128 mg/dL (70-99) Calcium Level 8.7 mg/dL (8.5-10.1) Total Bilirubin 0.2 mg/dL (0.2-1.0) Aspartate Amino Transf (AST/SGOT) 19 U/L (15-37) Alanine Aminotransferase (ALT/SGPT) 31 U/L (14-59) Alkaline Phosphatase 50 U/L (46-116) Troponin I Quantitative 0.083 ng/mL (0.000-0.055) Total Protein 6.8 g/dL (6.4-8.2) Albumin 3.2 g/dL (3.4-5.0) Albumin/Globulin Ratio 0.9 (1.0-1.7) Thyroid Stimulating Hormone (TSH) 1.728 uIU/mL (0.358-3.74) Glucose (Fingerstick) 131 mg/dL (70-99) ASSESSMENT/PLAN ASSESSMENT/PLAN 1. Atypical CP: Troponin 0.083. EKG SR with RBBB, suspicious for PE 2. Accelerated HTN: better. 3. Abdominal pain: RUQ. Hx of cholecystectomy and GERD GI following 4. Morbid obesity: BMI 70. 5. DM2/HLP Recommendations 1. TTE. DDIMER if positive then will proceed with CTA. 2. Further ischemic workup pending result of above. Trend troponin. 3. Discussed significantly with pt. Problems: BOBBY OCAMPO APRN Aug 21, 2017 11:45
[2017-08-21 12:02] LABS: OBC FLU VALID
[2017-08-21] MEDS: ASPIRIN ENTERIC COATED 81 MG TABLET.DR. PO SCH (12:40)
--- NOTE | 2017-08-21 12:55 | PDOC ---
PROGRESS NOTES Chief Complaint Chief Complaint Mult c/o ASSESSMENT AND PLAN: 1. RUQ pain: CT and US only with steatosis. s/p CCY. ?reflux - now on PPI 2. CP: atypical, R sided. DDimer incorrectly reported high - is actually normal, making PE unnecessary. 3. Troponin leak: continue trending. d/w cardiology: MPI in AM 4. HLD: check lipids 5. Hyperglycemia: mild. awaiting HgbA1c 6. Lymphedema: chronic, obesity related. elevate legs, use stockings History of Present Illness History of Present Illness Pain in shoulder blade and R lower rib margin, similar to pain when she had CCY. Vitals Vitals Vital Signs Date Time Temp Pulse Resp B/P (MAP) Pulse Ox O2 Delivery O2 Flow Rate FiO2 08/21/17 10:10 99 Room Air 95.0 08/21/17 08:26 86 151/81 08/21/17 07:00 98.5 20 98.5 Physical Exam General: Alert, Oriented X3, Cooperative, No acute distress Heart: Regular rate Lungs: Clear Abdomen: Normal bowel sounds, Soft, No tenderness Extremities: No clubbing, No edema Skin: No rashes Labs LABS Laboratory Tests Test 08/20/17 21:07 08/20/17 22:50 08/21/17 04:35 08/21/17 04:55 Glucose (Fingerstick) 112 mg/dL (70-99) Troponin I Quantitative < 0.017 ng/mL (0.000-0.055) 0.083 ng/mL (0.000-0.055) Erythrocyte Sedimentation Rate 18 (0-25) White Blood Count 6.8 x10^3/uL (4.0-11.0) Red Blood Count 3.90 x10^6/uL (3.50-5.40) Hemoglobin 11.8 g/dL (12.0-15.5) Hematocrit 35.3 % (36.0-47.0) Mean Corpuscular Volume 91 fL (79-100) Mean Corpuscular Hemoglobin 30 pg (25-35) Mean Corpuscular Hemoglobin Concent 33 g/dL (31-37) Red Cell Distribution Width 14.3 % (11.5-14.5) Platelet Count 209 x10^3/uL (140-400) Neutrophils (%) (Auto) 64 % (31-73) Lymphocytes (%) (Auto) 25 % (24-48) Monocytes (%) (Auto) 7 % (0-9) Eosinophils (%) (Auto) 4 % (0-3) Basophils (%) (Auto) 0 % (0-3) Neutrophils # (Auto) 4.3 x10^3uL (1.8-7.7) Lymphocytes # (Auto) 1.7 x10^3/uL (1.0-4.8) Monocytes # (Auto) 0.5 x10^3/uL (0.0-1.1) Eosinophils # (Auto) 0.3 x10^3/uL (0.0-0.7) Basophils # (Auto) 0.0 x10^3/uL (0.0-0.2) Sodium Level 143 mmol/L (136-145) Potassium Level 3.9 mmol/L (3.5-5.1) Chloride Level 104 mmol/L (98-107) Carbon Dioxide Level 34 mmol/L (21-32) Anion Gap 5 (6-14) Blood Urea Nitrogen 14 mg/dL (7-20) Creatinine 0.8 mg/dL (0.6-1.0) Estimated GFR (Cockcroft-Gault) 75.3 BUN/Creatinine Ratio 18 (6-20) Glucose Level 128 mg/dL (70-99) Calcium Level 8.7 mg/dL (8.5-10.1) Total Bilirubin 0.2 mg/dL (0.2-1.0) Aspartate Amino Transf (AST/SGOT) 19 U/L (15-37) Alanine Aminotransferase (ALT/SGPT) 31 U/L (14-59) Alkaline Phosphatase 50 U/L (46-116) Total Protein 6.8 g/dL (6.4-8.2) Albumin 3.2 g/dL (3.4-5.0) Albumin/Globulin Ratio 0.9 (1.0-1.7) Thyroid Stimulating Hormone (TSH) 1.728 uIU/mL (0.358-3.74) Test 08/21/17 07:06 08/21/17 11:05 08/21/17 11:39 Glucose (Fingerstick) 131 mg/dL (70-99) 106 mg/dL (70-99) Influenza Type A Antigen Negative (NEGATIVE) Influenza Type B Antigen Negative (NEGATIVE) DOMINIC SIDHU MD Aug 21, 2017 12:55
[2017-08-21] MEDS ORDERED: IOHEXOL 300 MG/ML 75 ML VIAL IV ONE (13:45)
[2017-08-21 15:00] VITALS: BP 132/65
[2017-08-21 19:00] VITALS: BP 136/63
[2017-08-21] MEDS ORDERED: ATORVASTATIN CALCIUM 10 MG TABLET. PO SCH (21:00)
[2017-08-21 23:00] VITALS: BP 140/65
[2017-08-22] MEDS ORDERED: CETIRIZINE HCL 10 MG TABLET. PO ONE (00:30)
[2017-08-22 03:00] VITALS: BP 151/70
[2017-08-22 07:30] VITALS: BP 137/82
[2017-08-22] MEDS: INSULIN ASPART 300 UNITS/3 ML INSULN.PEN SQ SCH ×2 (08:00→11:56)
[2017-08-22] MEDS ORDERED: REGADENOSON 0.4 MG/5 ML DISP.SYRIN. IV ONE (08:30)
[2017-08-22] MEDS: PANTOPRAZOLE 40 MG TABLET.DR. PO SCH (08:35)
[2017-08-22] MEDS: CHOLECALCIFEROL (VITAMIN D3) 1,000 UNIT TABLET PO SCH (08:35)
[2017-08-22] MEDS: oxyCODONE/APAP 5/325 1 TAB TABLET PO PRN (08:35)
[2017-08-22] MEDS: LOSARTAN POTASSIUM 50 MG TABLET. PO SCH (08:36)
[2017-08-22] MEDS: ASPIRIN ENTERIC COATED 81 MG TABLET.DR. PO SCH (08:36)
[2017-08-22] MEDS: CETIRIZINE HCL 10 MG TABLET. PO SCH (08:36)
[2017-08-22] MEDS: MAGNESIUM OXIDE 400 MG TABLET PO SCH (08:36)
[2017-08-22] MEDS: FENOFIBRATE,MICRONIZED 134 MG CAPSULE PO SCH (08:37)
[2017-08-22] MEDS: hydroCHLOROthiazide 25 MG TABLET PO SCH (08:37)
[2017-08-22] MEDS: metroNIDAZOLE 0.75% TOPICAL 1 APP TUBE TP SCH (08:37)
[2017-08-22] MEDS: LIDOCAINE (700MG/PATCH) PATCH. TD SCH (08:38)
--- NOTE | 2017-08-22 10:11 | PDOC ---
CARDIO Progress Notes Date and Time Date of Service 08/22/2017 Time of Evaluation 1010 Subjective Subjective: No shortness of breath, No Palpitations, No Dizziness, Other (CP better overnight) Vitals Vitals Vital Signs Date Time Temp Pulse Resp B/P (MAP) Pulse Ox O2 Delivery O2 Flow Rate FiO2 08/22/17 08:36 84 137/82 08/22/17 08:35 93 Room Air 95.0 08/22/17 07:30 97.6 18 97.6 Weight Weight [ ] Input and Output Intake and Output Intake and Output 08/23/17 07:00 # Voids 1 Laboratory Labs Laboratory Tests Test 08/21/17 11:05 08/21/17 11:39 08/21/17 11:55 08/21/17 17:08 Influenza Type A Antigen Negative (NEGATIVE) Influenza Type B Antigen Negative (NEGATIVE) Glucose (Fingerstick) 106 mg/dL (70-99) 145 mg/dL (70-99) D-Dimer (Jasmine) < 0.27 ug/mlFEU Troponin I Quantitative 0.096 ng/mL (0.000-0.055) Test 08/21/17 21:21 08/22/17 07:23 Glucose (Fingerstick) 117 mg/dL (70-99) 150 mg/dL (70-99) Microbiology Micro Microbiology 08/20/17 Urine Culture - Preliminary, Resulted 08/20/17 Urine Culture Result 1 (HENRIQUE) - Preliminary, Resulted Physical Exam HEENT: Neck Supple W Full Motion Chest: Symmetric LUNGS: Clear to Auscultation Heart: S1S2, RRR (SR no significant ectopies) Abdomen: Soft N/T, Other (obese) Extremities: No Calf Tenderness Neurology: alert, oriented, follow commands Assessment Assessment 1. Atypical CP: DDIMER normal ruling out PE. Peaked Troponin 0.09. EKG SR with RBBB 2. Accelerated HTN: remains controlled 3. Abdominal pain: RUQ. Hx of cholecystectomy and GERD. GI following 4. Morbid obesity: BMI 70. 5. DM2/HLP Recommendations 1. TTE. MPI completion today. 2. Continue with secondary prevention BOBBY OCAMPO APRN Aug 22, 2017 10:11
[2017-08-22 10:31] LABS: CHOLESTEROL/HDL RATIO 3.7
--- NOTE | 2017-08-22 10:49 | PDOC ---
PROGRESS NOTES Chief Complaint Chief Complaint Mult c/o ASSESSMENT AND PLAN: 1. RUQ pain: CT and US only with steatosis. s/p CCY. ?reflux - now on PPI 2. CP: atypical, R sided. DDimer neg 3. Troponin leak: continue trending. d/w cardiology: MPI in progress. cont 2ary prevention meds 4. HLD: lipids WNL 5. Hyperglycemia: mild. HgbA1c 6.7, confirming dx of DM. diet restrictions , medication regimen not indicated (yet). F/U with PCP 6. Lymphedema: chronic, obesity related. elevate legs, use stockings 7. Dispo: pending results of MPI History of Present Illness History of Present Illness feels a little off since getting MPI injection. no CP or SOB Vitals Vitals Vital Signs Date Time Temp Pulse Resp B/P (MAP) Pulse Ox O2 Delivery O2 Flow Rate FiO2 08/22/17 10:39 93 Room Air 95.0 08/22/17 08:36 84 137/82 08/22/17 07:30 97.6 18 97.6 Physical Exam General: Alert, Oriented X3, Cooperative, No acute distress Heart: Regular rate Lungs: Clear Abdomen: Normal bowel sounds, Soft, No tenderness Extremities: No clubbing, No edema Skin: No rashes Labs LABS Laboratory Tests Test 08/21/17 11:05 08/21/17 11:39 08/21/17 11:55 08/21/17 17:08 Influenza Type A Antigen Negative (NEGATIVE) Influenza Type B Antigen Negative (NEGATIVE) Glucose (Fingerstick) 106 mg/dL (70-99) 145 mg/dL (70-99) D-Dimer (Jasmine) < 0.27 ug/mlFEU Troponin I Quantitative 0.096 ng/mL (0.000-0.055) Test 08/21/17 21:21 08/22/17 07:23 Glucose (Fingerstick) 117 mg/dL (70-99) 150 mg/dL (70-99) DOMINIC SIDHU MD Aug 22, 2017 10:48
--- NOTE | 2017-08-22 11:44 | PDOC ---
Subjective: Subjective: Pain better w/ Lidocaine patch and Percocet. Had some diarrhea after high fat meals. Reflux better. Objective: Vital Signs: Vital Signs Date Time Temp Pulse Resp B/P (MAP) Pulse Ox O2 Delivery O2 Flow Rate FiO2 08/22/17 10:39 93 Room Air 95.0 08/22/17 08:36 84 137/82 08/22/17 07:30 97.6 18 97.6 Labs: Laboratory Tests Test 08/21/17 17:08 08/21/17 21:21 08/22/17 07:23 08/22/17 11:27 Glucose (Fingerstick) 145 mg/dL (70-99) 117 mg/dL (70-99) 150 mg/dL (70-99) 152 mg/dL (70-99) Imaging: MPI and Echocardiogram PENDING PE: GEN: NAD LUNGS: CTAB HEART: RRR ABD: obese, vague RUQ/right flank pain NEURO/PSYCH: A & O 3 A/P: RUQ/right breast/right shoulder pain -acute onset 08/19/17 while eating, has been fairly constant -s/p cholecystectomy GERD -on PPI Elevated troponin -cardiac eval ongoing -- Await stress test and echo results. If unrevealing, consider MRCP inpt or outpt. Continue PPI. SUSU CORDOVA Aug 22, 2017 11:43
[2017-08-22] MEDS ORDERED: FLU VACC QS2017-18 (36MOS+)/PF 0.5 ML SYRINGE. VAX IM ONE ×2 (13:15→14:00)
--- NOTE | 2017-08-22 14:22 | RAD ---
APPROVED REPORT Test Type: Pharmacological Stress Nurse/Tech: mati mitchell Test Indications: chest pain Cardiac History: HTN, SEE EHR Medications: SEE EHR Medical History: PAST SMOKER, DIABETES, SEE EHR Resting ECG: SR WITH BBB Resting Heart Rate: 74 bpm Resting Blood Pressure: 137/68mmHg Pretest Chest Pain: No chest pain Nurse/Tech Notes LUNG SOUNDS CLEAR, S1S2 WNL. Consent: The procedure was explained to the patient in lay terms. Informed consent was witnessed. Jt eout was entered into [facility]. History and Stress Test performed by RT Maribel (R) (N) Pharm. Details Pharmacologic stress testing was performed using 0.4mg per 5ml of regadenoson given intravenously ove r 7-10 seconds. Stress Symptoms HEADACHE, DULL CHEST PRESSURE, NAUSEA. ALL RESOLVED BUT HEADACHE. POST EXERCISE Reason for Termination: Infusion complete Max HR: 93 bpm Max Blood Pressure: 150/67mmHg Blood Pressure response to exercise: Normal blood pressure response during stress. Heart Rate response to exercise: WNL Chest Pain: No. PT STATED IT FEELS WEIRD IN MY CHEST, DID NOT DESCRIBE ANY PAIN. Arrhythmia: No. ST Change: No. INTERPRETATION Stress EKG Conclusion: The baseline EKG shows a sinus rhythm with mild nonspecific ST segment changes and an incomplete right bundle branch block. The stress EKG shows no significant changes from baseline. No EKG evidence of stress-induced ischemia. Imaging Protocol IMAGE PROTOCOL: Rest Tc-99m/stress Tc-99m 2 days Rest: Stress: Viability: Radiopharm.Tc99m OiqwckmczNb60g Sestamibi Kasc79qQn 35mCi Img Date 08/21/2017 08/22/2017 Inj-Img Kljt95aoc. 60min. Rest Admin Site:IV - Left ForearmAdministrator:ASCHIN Osullivan, ARRT (R)(N) Stress Admin Site: IV - Left ForearmAdministrator: RT Maribel (R)(N) STRESS DATA End Diast. Vol.120.0mlAv. Heart Rate78.0bpm End Syst. Vol.40.0mlCO Index BSA0.0L/min Myocardial Xruz495.0gEject. Shefbijw40.0% Stress Rates Pk. Fill Rate3.59EDV/secLVtime Pk. Fill 196.18msec Pk. Empty Rate4.52ESV/secLVtime Pk. Ymggl107.69msec /3 Pk. Fill1.10EDV/sec Stress Scores Regional WT0.00Summed WT3.00 Regional WM0.00Summed WM1.00 LV Perfusion The stress scans showed no significant defects. The rest scans showed no significant defects. Nuclear imaging shows no reversible ischemia or infarct. Wall Motion On the left ventricular systolic function with an ejection fraction of 67%. LV Perf. Quant 17 Seg. SSS0.00 17 Seg. SRS0.00 17 Seg. SDS0.00 Stress Defect Extent (% LAD)0.00Rest Defect Extent (% LAD)0.00Rev. Defect Extent (% LAD)0.00 Stress Defect Extent (% LCX) 0.00Rest Defect Extent (% LCX)0.00Rev. Defect Extent (% LCX)0.00 Stress Defect Extent (% RCA)0.00Rest Defect Extent (% RCA)0.00Rev. Defect Extent (% RCA)0.00 Stress Defect Extent (% REGAN)0.00Rest Defect Extent (% REGAN)0.00Rev. Defect Extent (% REGAN)0.00 Conclusion 1. Baseline abnormal EKG but no EKG evidence of stress-induced ischemia. 2. Nuclear imaging shows no reversible ischemia or infarct. 3. Normal left ventricular systolic function with an ejection fraction of 67%. 4. Low risk Lexiscan nuclear stress test.
--- NOTE | 2017-08-22 15:03 | CARD ---
APPROVED REPORT EXAM: Two-dimensional and M-mode echocardiogram with Doppler and color Doppler. Other Information Quality : Technically Limited Rhythm : RBBBTechnically limited study due to body habitus. INDICATION Chest Pain 2D DIMENSIONS RVDd3.5 (2.9-3.5cm)Left Atrium(2D)3.0 (1.6-4.0cm) IVSd1.3 (0.7-1.1cm)Aortic Root(2D)2.8 (2.0-3.7cm) LVDd5.4 (3.9-5.9cm)LVOT Diameter2.2 (1.8-2.4cm) PWd1.3 (0.7-1.1cm)LVDs3.2 (2.5-4.0cm) FS (%) 41.4 %SV102.2 ml LVEF(%)70.8 (>50%) Aortic Valve AoV Peak Silver.201.7cm/sAoV VTI34.4cm AO Peak GR.16.3mmHgLVOT Peak Silver.152.8cm/s LVOT VTI 28.89cmAO Mean GR.8mmHg GREER (VMAX)2.62be2BYP (VTI)3.29cm2 Mitral Valve MV E Uaxxrwfv54.3cm/sMV DECEL DAUO298eb MV A Omqwndqd479.6cm/sMV OQL36xc E/A Ratio0.9MV A Jddjjtiv67xo MVA (PHT)3.30cm2 TDI E/Lateral E'7.4E/Medial E'7.0 Pulmonary Valve PV Peak Hhfgswai729.1cm/sPV Peak Grad.5mmHg Pulmonary Vein S1 Ehfmjjez90.1cm/sD2 Cmvhhuol52.6cm/s LEFT VENTRICLE The left ventricle is normal size. There is borderline to mild concentric left ventricular hypertroph y. Left ventricle systolic function is normal. The Ejection Fraction is 65-70%. There is normal LV se gmental wall motion. The left ventricular diastolic function and filling is normal for age. There is no ventricular septal defect visualized. RIGHT VENTRICLE The right ventricle is normal size. The right ventricular systolic function is normal. ATRIA The left atrium size is normal. The right atrium size is normal. The interatrial septum is intact wit h no evidence for an atrial septal defect or patent foramen ovale as noted on 2-D or Doppler imaging. AORTIC VALVE The aortic valve is normal in structure and function. The aortic valve is trileaflet. Doppler and Col or Flow revealed no significant aortic regurgitation. There is no significant aortic valvular stenosi s. MITRAL VALVE The mitral valve is normal in structure and function. There is no mitral valve stenosis. Doppler and Color Flow revealed trace mitral valve regurgitation. TRICUSPID VALVE The tricuspid valve is not well visualized. Doppler and Color Flow revealed no tricuspid valve regurg itation noted. There is no tricuspid valve stenosis. PULMONIC VALVE The pulmonic valve is not well visualized. Doppler and Color Flow revealed no pulmonic valvular regur gitation. There is no pulmonic valvular stenosis. GREAT VESSELS The aortic root is normal in size. Normal pulmonary venous flow (Doppler). The IVC was not visualized . PERICARDIAL EFFUSION There is no evidence of significant pericardial effusion. Critical Notification Critical Value: No <Conclusion> The left ventricle is normal size. Left ventricle systolic function is normal. The Ejection Fraction is 65-70%. There is borderline to mild concentric left ventricular hypertrophy. There is no significant aortic valvular stenosis. Doppler and Color Flow revealed no significant aortic regurgitation. Doppler and Color Flow revealed trace mitral valve regurgitation. Doppler and Color Flow revealed no tricuspid valve regurgitation noted.
[2017-08-22 15:15] VITALS: BP 128/67
[2017-08-22] MEDS ORDERED: LIDO700A39 TD (16:07)
[2017-08-22] MEDS ORDERED: PANT40TA5 PO (16:13)
--- NOTE | 2017-08-23 05:28 | DS ---
DATE OF DISCHARGE: 08/22/2017 CHIEF COMPLAINT: Abdominal pain, chest pain and troponin leak. HOSPITAL COURSE: The patient is a morbidly obese 52-year-old woman who presented with right-sided chest pain, especially in her shoulder blade. Also had some right upper quadrant pain suspicious for gallstones; however, she is status post cholecystectomy times several decades. Ultrasound and CT were negative for any stones and were showing steatosis in the liver only. She was therefore started on Protonix instead of Aciphex, her home medications for GERD. Her chest pain was further worked up with D-dimer, which was negative, ruling out PE. Her troponin leak prompted a Cardiology consult. A myocardial perfusion image stress test was obtained, which actually was negative. She was continued on her home secondary prevention medications including statins. She was noted to have mild hyperglycemia with a hemoglobin A1c of 6.7 confirming the diagnosis of diabetes. Diet restrictions were discussed. Medications are not indicated (yet). She is to follow up with her primary care physician. Her right-sided chest pain actually resolved. She will follow up with Gastroenterology for consideration of MRCP on an outpatient basis. PHYSICAL EXAMINATION: VITAL SIGNS: Show blood pressure of 137/82, heart rate at 84, respiratory rate at 18. She is afebrile. GENERAL: This is a morbidly obese 52-year-old woman, pleasant, alert and oriented, in no acute distress. LUNGS: Clear. HEART: Regular rate and rhythm. ABDOMEN: Has positive bowel sounds. EXTREMITIES: Show no edema. DISCHARGE DIAGNOSIS: Troponin leak, no reversible ischemia. DISCHARGE DISPOSITION: To home. DISCHARGE CONDITION: Improved. DISCHARGE MEDICATIONS: Please refer to MAR. DISCHARGE INSTRUCTIONS: The patient will follow up with Dr. Lebron in 2-4 weeks for consideration of MRCP. DOMINIC SIDHU MD DR: UR/nts JOB#: [id number] / [id number] GADIEL
== END 2017-08-22 17:01 | disposition home or self-care (01) | DRG 313 ==
LOC: ER 11:32 → 5 NORTH 16:20
PROVIDERS: ADMIT Internal Medicine; ATTEND Internal Medicine
DX: R07.9 Chest pain, unspecified (principal); E88.89 Other specified metabolic disorders; K76.0 Fatty (change of) liver, not elsewhere classified; Z68.45 Body mass index [BMI] 70 or greater, adult; K21.9 Gastro-esophageal reflux disease without esophagitis; E11.65 Type 2 diabetes mellitus with hyperglycemia; I10 Essential (primary) hypertension; E66.01 Morbid (severe) obesity due to excess calories; E78.5 Hyperlipidemia, unspecified; F41.9 Anxiety disorder, unspecified; G47.00 Insomnia, unspecified; I45.10 Unspecified right bundle-branch block; I89.0 Lymphedema, not elsewhere classified; M17.0 Bilateral primary osteoarthritis of knee; Z82.3 Family history of stroke; Z82.49 Family history of ischemic heart disease and other diseases of the circulatory system; Z87.442 Personal history of urinary calculi; Z90.49 Acquired absence of other specified parts of digestive tract; Z88.2 Allergy status to sulfonamides; Z88.8 Allergy status to other drugs, medicaments and biological substances
CPT/HCPCS: 36415; 71010; 74177; 76705; 78452; 80048; 80053; 80061; 80076; 80307; 81001; 82553; 82962; 83036; 83690; 84443; 84484; 85025; 85379; 85610; 85651; 85730; 87086; 87804; 90686; 93005; 93017; 93306; 96361; 96374; 96375; 96376; A9500; J1815; J2270; J2405; J2785; J3010; J7030; Q9966; Q9967; 99285-25; G0479

== ENCOUNTER → 2017-11-22 | Day surgery (SDC) | payer OTHER ==
[~2017-11-22] MED LIST: HYDROmorphone 2 MG/ML VIAL IV; LIDOCAINE 1% PF 2 ML VIAL. ID; LIDOCAINE 2% PF Vial for OR 5 ML VIAL.; MORPHINE SULFATE 2 MG/ML DISP.SYRIN. IV; ONDANSETRON PF 4 MG/2 ML VIAL. IV; PROCHLORPERAZINE 10 MG/2 ML VIAL. IV; PROPOFOL 20 ML IV; fentaNYL PF VIAL 100 MCG/2 ML VIAL IV
[2017-11-22 10:10] LABS: POC GLUCOSE 124 mg/dL (70-99)
[2017-11-22] MEDS: IV RINGERS,LACTATED 1000ML 1,000 ML IV (10:22)
== END | disposition home or self-care (01) ==
LOC: ENDOS 09:27
DX: K29.50 Unspecified chronic gastritis without bleeding (principal); E78.00 Pure hypercholesterolemia, unspecified; I10 Essential (primary) hypertension; E11.9 Type 2 diabetes mellitus without complications; K21.9 Gastro-esophageal reflux disease without esophagitis; E78.5 Hyperlipidemia, unspecified; Z90.49 Acquired absence of other specified parts of digestive tract; Z90.710 Acquired absence of both cervix and uterus; Z87.09 Personal history of other diseases of the respiratory system; Z85.828 Personal history of other malignant neoplasm of skin; Z86.14 Personal history of Methicillin resistant Staphylococcus aureus infection; Z87.891 Personal history of nicotine dependence; Z72.89 Other problems related to lifestyle; Z80.8 Family history of malignant neoplasm of other organs or systems; Z84.1 Family history of disorders of kidney and ureter; Z82.0 Family history of epilepsy and other diseases of the nervous system; Z82.49 Family history of ischemic heart disease and other diseases of the circulatory system; Z82.3 Family history of stroke; Z82.69 Family history of other diseases of the musculoskeletal system and connective tissue; Z88.2 Allergy status to sulfonamides; Z88.8 Allergy status to other drugs, medicaments and biological substances; Z91.048 Other nonmedicinal substance allergy status; Z79.84 Long term (current) use of oral hypoglycemic drugs
CPT/HCPCS: 43235; 82962; J2704